=== PATIENT | male | born 1955 | race Caucasian/White ===

== ENCOUNTER 2019-02-14 16:44 | Emergency (ER) | payer MEDICARE ==
[2019-02-14 17:27] LABS: ADD MAN DIFF? NO; BASOPHILS % 0.6 % (0.0-2.0); EOSINOPHILS # 0.2 10^3/ul (0.0-0.5); EOSINOPHILS % 2.1 % (0.0-7.0); HEMATOCRIT 44.6 % (42.0-52.0); HEMOGLOBIN 14.9 g/dl (14.0-18.0); LYMPHOCYTES # 2.7 10^3/ul (0.8-2.9); LYMPHOCYTES % 37.9 % (15.0-51.0); MEAN CORPUSCULAR HEMOGLOBIN 30.9 pg (29.0-33.0); MEAN CORPUSCULAR HGB CONC 33.4 g/dl (32.0-37.0); MEAN CORPUSCULAR VOLUME 92.5 fl (82.0-101.0); MONOCYTE # 0.6 10^3/ul (0.3-0.9); MONOCYTES % 8.5 % (0.0-11.0); NEUTROPHIL # 3.6 10^3/ul (1.6-7.5); NEUTROPHILS % 50.8 % (39.0-77.0); PLATELET COUNT 220 10^3/UL (140-415); RED BLOOD COUNT 4.82 10^6/ul (4.70-6.10); RED CELL DISTRIBUTION WIDTH 13.3 % (11.5-14.5)
[2019-02-14 17:27] LABS: WHITE BLOOD COUNT 7.1 10^3/ul (4.8-10.8)
[2019-02-14] MEDS: ASPIRIN 81 MG TAB PO (17:31)
[2019-02-14 17:45] LABS: ANION GAP 7 (5-13); BLOOD UREA NITROGEN 14 mg/dl (7-20); CALCIUM 9.6 mg/dl (8.4-10.2); CARBON DIOXIDE 23 mmol/L (21-31); CHLORIDE 109 mmol/L (97-110); CREATININE 0.98 mg/dl (0.61-1.24); Estimated GFR > 60 mL/min (>60); GLUCOSE 131 mg/dl (70-220); SODIUM 139 mmol/L (135-144)
[2019-02-14 17:57] LABS: TROPONIN-I < 0.012 ng/ml (0.000-0.120)
[2019-02-14] MEDS ORDERED: HYDROCODONE/APAP (5/325) TAB PO (19:00)
[2019-02-14] MEDS ORDERED: ONDANSETRON 4 MG INJ IV ×2 (19:00)
[2019-02-14] MEDS ORDERED: LORAZEPAM 2 MG INJ IV (19:00)
[2019-02-14] MEDS ORDERED: hydrALAzine 20 MG INJ IV (19:00)
[2019-02-14] MEDS ORDERED: ALBUTEROL/IPRATROPIUM (NEB) 3 ML AMP HHN (19:00)
[2019-02-14] MEDS ORDERED: ACETAMINOPHEN 325 MG TAB PO ×2 (19:00)
[2019-02-14] MEDS ORDERED: NACL 0.9% 3 ML SYG IV (19:00)
[2019-02-14] MEDS ORDERED: MAGNESIUM HYDROXIDE 30ML CUP PO (19:00)
[2019-02-14] MEDS ORDERED: NITROGLYCERIN (SL) 0.4 MG TAB SL (19:00)
[2019-02-14] MEDS ORDERED: DOCUSATE SODIUM 100 MG CAP PO (19:00)
[2019-02-14] MEDS ORDERED: morphine 2 MG INJ IV (19:00)
[2019-02-14 19:44] LABS: CREATINE KINASE 52 IU/L (23-200)
[2019-02-14 19:57] LABS: CK INDEX 1.7; CK-MB 0.87 ng/ml (0.0-2.4); TROPONIN-I < 0.012 ng/ml (0.000-0.120)
[2019-02-14 21:01] LABS: FREE T4 (FREE THYROXINE) 1.04 ng/dl (0.78-2.44)
[2019-02-15] MEDS ORDERED: ASPIRIN (EC) 325 MG TAB PO (09:00)
== END 2019-02-14 23:25 | disposition left against medical advice (07) ==
LOC: E/R 16:44
DX: R07.9 Chest pain, unspecified (principal); R55 Syncope and collapse; I10 Essential (primary) hypertension; I25.2 Old myocardial infarction; F17.210 Nicotine dependence, cigarettes, uncomplicated; Z79.82 Long term (current) use of aspirin; Z86.73 Personal history of transient ischemic attack (TIA), and cerebral infarction without residual deficits
CPT/HCPCS: 36415; 71045; 80048; 82550; 82553; 84439; 84484; 85025; 93005; 99285-25